=== PATIENT | female | born 1965 | race Caucasian/White ===

== ENCOUNTER 2016-12-16 11:26 | Emergency (ER) | payer MEDICARE, OTHER ==
[~2016-12-16] VITALS: Ht 157.5 cm; Wt 73.0 kg
[~2016-12-16 11:26] MED LIST: LITH300C2 PO; METHY5 PO; NORV10TA PO; SERO100T PO; TRAM50TA PO; ZOLO50TA PO
[2016-12-16 11:29] VITALS: BP 160/85; PULSE 83; RESP 17; TEMP 98.4; O2SAT 99
[2016-12-16] MEDS ORDERED: ZOLO50TA PO (11:44)
[2016-12-16] MEDS ORDERED: MULT1TAB84 PO (11:44)
[2016-12-16] MEDS ORDERED: AMLO10 PO (11:44)
[2016-12-16] MEDS ORDERED: ORPHENADRINE INJ 60 MG/2 ML AMP IM ONE (12:00)
[2016-12-16] MEDS ORDERED: KETOROLAC TROMETHAMINE 60 MG/2 ML (IM) VIAL IM ONE (12:00)
[2016-12-16] MEDS ORDERED: ACETAMINOPHEN/HYDROcodone 325 MG/5 MG TAB PO ONE (12:00)
--- NOTE | 2016-12-16 12:14 | PD ---
HPI Chief Complaint: Fall Time Seen by Provider: 12:10 Travel History International Travel<30 days: No Contact w/Intl Traveler<30days: No Traveled to known affect area: No History of Present Illness HPI 51-year-old female that presents to the ED for evaluation of trip and fall 3 days ago. Per patient she has a history of back surgery and chronic back problems. Per patient she chronically takes tramadol. Per patient she landed on her left buttocks and ever since she's been having pain. Per patient she tripped over some wooden stairs trying to take up the trash. She did not hit her head or lose consciousness. Several to ambulate but she states that putting any weight on the left leg causes a lot of pain. Pain is mostly on the left lower back and buttocks. She denies any prior injuries to the hip. She states that the pain is 8 out of 10. Per patient the pain medication she is taking is not really helping. Per patient her PCP is out of town so she decided to come here to get evaluated as she will not be able to get with him next couple of days. She denies any neck pain. She denies any fevers chills or sweats. No urinary or bowel movement issues. No weakness. No numbness, tilling. No neurological deficits whatsoever. Allergies to penicillin and codeine. PFSH Past Medical History ADHD: Yes Bipolar Disorder: Yes Anxiety: Yes Depression: Yes Cancer: No Cardiovascular Problems: Yes Diabetes: No Diminished Hearing: Yes Endocrine: No Genitourinary: No Hepatitis: Yes (C) Hypertension: Yes Immune Disorder: No Musculoskeletal: Yes Neurologic: No Psychiatric: Yes Reproductive: No Respiratory: Yes Immunizations Current: Yes Schizophrenia: Yes Thyroid Disease: No Tetanus Vaccination: < 5 Years Influenza Vaccination: Yes ?: Not Menopausal: Yes Past Surgical History Section: Yes (X2) Gynecologic Surgery: Yes (C SECTION X2) Tonsillectomy: Yes Other Surgery: Yes (BACK X2) Social History Alcohol Use: Yes (occ) Tobacco Use: Yes (1/2 PACK DAILY) Substance Use: No (denies) Allergies-Medications (Allergen,Severity, Reaction): Coded Allergies: Penicillin (Verified Allergy, Severe, Anaphylaxis, 12/16/16) Uncoded Allergies: asa with codeine (Allergy, Mild, n/v rash, 12/16/16) Reported Meds & Prescriptions Reported Meds & Active Scripts Active Diclofenac Sodium DR (Diclofenac Sodium) 75 Mg Tabdr 75 Mg PO BID PRN Robaxin (Methocarbamol) 750 Mg Tab 750 Mg PO QID PRN Lortab (Hydrocodone-Acetaminophen) 5-325 Mg Tab 1 Tab PO Q6H PRN Reported Multivitamin Adults (Multiple Vitamins W/ Minerals) 1 Tab 1 Tab PO DAILY Zoloft (Sertraline HCl) 50 Mg Tab 50 Mg PO DAILY Norvasc (Amlodipine Besylate) 10 Mg Tab 10 Mg PO BID Review of Systems Except as stated in HPI: all other systems reviewed are Neg Physical Exam Narrative GENERAL: SKIN: Warm and dry. HEAD: Atraumatic. Normocephalic. EYES: Pupils equal and round. No scleral icterus. No injection or drainage. ENT: No nasal bleeding or discharge. Mucous membranes pink and moist. Tongue is midline. No uvula deviation. NECK: Trachea midline. No JVD. CARDIOVASCULAR: Regular rate and rhythm. No murmurs, S3, S4. RESPIRATORY: No accessory muscle use. Clear to auscultation. Breath sounds equal bilaterally. GASTROINTESTINAL: Abdomen soft, non-tender, nondistended. Hepatic and splenic margins not palpable. MUSCULOSKELETAL: Extremities without clubbing, cyanosis, or edema. No obvious deformities. Full range of motion of the upper and lower extremities bilaterally. Patient has reproducible pain with flexion of the left hip on the lower lumbar back. No sign of spinal tenderness. Patient does have a surgical scar noted. Full range of motion of the lower legs. 2+ pulses bilaterally. Sensation intact bilaterally. Most of the pain is reproducible with touch as well as with movement of the left lower back around the buttocks. NEUROLOGICAL: Awake and alert. No obvious cranial nerve deficits. Motor grossly within normal limits. Five out of 5 muscle strength in the arms and legs. Normal speech. PSYCHIATRIC: Appropriate mood and affect; insight and judgment normal. Data Data Last Documented VS Vital Signs Date Time Temp Pulse Resp B/P Pulse Ox O2 Delivery O2 Flow Rate FiO2 12/16/16 11:29 98.4 83 17 160/85 99 Orders Hip, Uni(Ap&Lat) W Ap Pelvis (12/16/16 11:50) Acetamin-Hydrocod 325-5 Mg ([place] 5-325 (12/16/16 12:00) Ketorolac Inj (Toradol Inj) (12/16/16 12:00) Orphenadrine Inj (Norflex Inj) (12/16/16 12:00) Spine, Lumbar Comp W/Obliq (12/16/16 ) MDM Medical Decision Making Medical Screen Exam Complete: Yes Emergency Medical Condition: Yes Medical Record Reviewed: Yes Interpretation(s) xray of the lumbar spine showed no sign of acute disease xray of the hip showed no sign of acute disease Differential Diagnosis Fracture versus fall versus contusion versus acute on chronic pain versus sciatica Narrative Course 51-year-old female that presents to the ED for evaluation of left lower back pain. Patient was properly examined and was found to have signs and symptoms very consistent with her pain following possible bony injuries. Imaging recommended. Patient agrees with this. Patient was given IM and by mouth any medications with some relief. Imaging showed no sign of acute disease. Patient was reassured. At this time patient will be treated for this with Robaxin, Lortab, diclofenac sodium. Told to apply ice or warm compresses. Close follow with PCP. See ED worsening symptoms. Diagnosis Primary Impression: Contusion Qualified Code: S30.0XXA - Contusion of lower back, initial encounter Additional Impression: Lumbar radiculopathy, acute Patient Instructions: General Instructions, Narcotic given in the ED Additional Instructions: Take medications as prescribed. Follow-up with PCP. See ED for any worsening symptoms. Do not drink or drive while taking pain medication. Apply ice or heat as needed for pain Med/Other Pt SpecificInfo: Prescription(s) given Scripts Diclofenac Sodium DR 75 Mg Tabdr75 Mg PO BID PRN (PAIN SCALE 1 TO 10) #20 TAB Prov:Eric Jane MD 12/16/16 Methocarbamol (Robaxin)750 Mg Chm745 Mg PO QID PRN (PAIN SCALE 1 TO 10) #20 TAB Prov:Eric Jane MD 12/16/16 Hydrocodone-Acetaminophen (Lortab)5-325 Mg Tab1 Tab PO Q6H PRN (PAIN) #15 TAB Prov:Eric Jane MD 12/16/16 Disposition: 01 DISCHARGE HOME Condition: Stable Jean Paul Plascencia Dec 16, 2016 12:14
[2016-12-16] MEDS ORDERED: HYDR-3533 PO (12:40)
[2016-12-16] MEDS ORDERED: DICL75TA PO (12:40)
[2016-12-16] MEDS ORDERED: ROBA750T PO (12:40)
--- NOTE | 2016-12-16 13:07 | RADHPO ---
EXAM DATE/TIME: 12/16/2016 12:09 [facility] COMPARISON: No previous studies available for comparison. INDICATIONS : Left hip pain post fall three days ago. MEDICAL HISTORY : None. SURGICAL HISTORY : None. ENCOUNTER: Initial ACUITY: 3 days PAIN SCORE: 7/10 LOCATION: Left hip. FINDINGS: 3 views left hip and pelvis. Bone alignment within normal limits. No evidence of fracture. No eviden ce of joint narrowing. CONCLUSION: Left hip and pelvis radiographs within normal limits. Tarik Quevedo MD on December 16, 2016 at 13:05 Board Certified Radiologist. This report was verified electronically.
--- NOTE | 2016-12-16 13:59 | RADHPO ---
EXAM DATE/TIME: 12/16/2016 13:05 [facility] COMPARISON: No previous studies available for comparison. INDICATIONS : Lower back pain post fall three days ago. MEDICAL HISTORY : None. SURGICAL HISTORY : Lumbar surgery. ENCOUNTER: Initial ACUITY: 3 days PAIN SCORE: 6/10 LOCATION: lumbar spine. FINDINGS: 5 views of the lumbar spine. Bone alignment within normal limits. No evidence of fracture. Moderate size endplate osteophytes at L5-S1. Moderate severity facet arthrosis at L5-S1. Diffuse aortic calcif ication. CONCLUSION: No evidence of fracture. Moderate severity degenerative findings at L5-S1. Tarik Quevedo MD on December 16, 2016 at 13:56 Board Certified Radiologist. This report was verified electronically.
== END 2016-12-16 13:52 | disposition home or self-care (01) ==
LOC: PHEFT 11:26
DX: S30.0XXA Contusion of lower back and pelvis, initial encounter (principal); M54.16 Radiculopathy, lumbar region; F31.9 Bipolar disorder, unspecified; F41.8 Other specified anxiety disorders; I10 Essential (primary) hypertension; F20.9 Schizophrenia, unspecified; W18.09XA Striking against other object with subsequent fall, initial encounter; Y93.9 Activity, unspecified; Y92.89 Other specified places as the place of occurrence of the external cause; Y99.9 Unspecified external cause status
CPT/HCPCS: 72110; 73502; 96372; 99283; J1885; J2360

== ENCOUNTER 2017-03-15 14:05 | Emergency (ER) | payer MEDICARE, MEDICAID ==
[~2017-03-15 14:05] MED LIST changes: +AMLO10 PO; +DICL75TA PO; +HYDR-3533 PO; -LITH300C2 PO; -METHY5 PO; +MULT1TAB84 PO; -NORV10TA PO; +ROBA750T PO; -SERO100T PO; -TRAM50TA PO
[2017-03-15 14:13] VITALS: BP 172/77; PULSE 93; RESP 20; TEMP 98.7; O2SAT 97
[2017-03-15] MEDS ORDERED: ALBUAER3 INH (14:33)
[2017-03-15] MEDS ORDERED: SERT-129 PO (14:33)
[2017-03-15] MEDS ORDERED: SIMV40TA PO (14:33)
[2017-03-15] MEDS ORDERED: TRAM50TA PO (14:33)
[2017-03-15] MEDS ORDERED: SERO100T PO (14:33)
[2017-03-15] MEDS ORDERED: ALBU0.63 NEB (14:33)
[2017-03-15] MEDS ORDERED: DOXY100C PO (14:35)
--- NOTE | 2017-03-15 14:41 | PD ---
HPI Chief Complaint: Respiratory Symptoms Time Seen by Provider: 14:21 Travel History International Travel<30 days: No Contact w/Intl Traveler<30days: No Traveled to known affect area: No History of Present Illness HPI The patient was seen and examined in the presence of the nurse. This patient complains of irritating rash on her legs. Duration 3 days. Severity is moderate. She says that she gets this once a year and infection that goes away with antibiotics. She denies fever. No drainage. PFSH Past Medical History ADHD: Yes Bipolar Disorder: Yes Anxiety: Yes Depression: Yes Cancer: No Cardiovascular Problems: Yes COPD: Yes Diabetes: No Diminished Hearing: Yes Endocrine: No Genitourinary: No Hepatitis: Yes (C) Hypertension: Yes Immune Disorder: No Musculoskeletal: Yes Neurologic: No Psychiatric: Yes Reproductive: No Respiratory: Yes Immunizations Current: Yes Schizophrenia: Yes Thyroid Disease: No Tetanus Vaccination: > 5 Years Influenza Vaccination: Yes ?: Not Menopausal: Yes Past Surgical History Section: Yes (X2) Gynecologic Surgery: Yes (C SECTION X2) Tonsillectomy: Yes Other Surgery: Yes (BACK X2) Social History Alcohol Use: Yes (occ) Tobacco Use: Yes (1/2 PACK DAILY) Substance Use: No (denies) Allergies-Medications (Allergen,Severity, Reaction): Coded Allergies: Penicillin (Verified Allergy, Severe, Anaphylaxis, 03/15/17) Uncoded Allergies: asa with codeine (Allergy, Mild, n/v rash, 12/16/16) Reported Meds & Prescriptions Reported Meds & Active Scripts Active Doxycycline Hyclate 100 Mg Cap 100 Mg PO BID Reported Albuterol Neb (Albuterol Sulfate) 0.63 Mg/3 Ml Neb 0.63 Mg NEB Q4HR NEB PRN Proair Hfa 8.5 GM Inh (Albuterol Sulfate) 90 Mcg/Act Aer 1 Puff INH Q4H PRN 108 mcg/actuation Simvastatin 40 Mg Tab 40 Mg PO HS Tramadol (Tramadol HCl) 50 Mg Tab 100 Mg PO TID PRN Sertraline (Sertraline HCl) 100 Mg Tab 100 Mg PO DAILY Seroquel (Quetiapine Fumarate) 100 Mg Tab 100 Mg PO BID Norvasc (Amlodipine Besylate) 10 Mg Tab 10 Mg PO BID Review of Systems General / Constitutional: No: Fever HENT: No: Headaches Cardiovascular: No: Chest Pain or Discomfort Respiratory: No: Cough Physical Exam Narrative RESPIRATORY: Respiratory effort unlabored, no retractions or use of accessory muscles. Breath sounds are clear and symmetric. CARDIOVASCULAR: Regular rate and rhythm without murmur. Extremities showed no edema or varicosities. Legs: Mild symmetric edema SKIN: Focused skin assessment reveals there is macular erythematous rash on both julian areas. No ulcers. Skin is warm and dry. Palpation shows no induration or nodules. No drainage Data Data Last Documented VS Vital Signs Date Time Temp Pulse Resp B/P Pulse Ox O2 Delivery O2 Flow Rate FiO2 03/15/17 14:23 Room Air 03/15/17 14:13 98.7 93 20 172/77 97 MDM Medical Decision Making Medical Screen Exam Complete: Yes Emergency Medical Condition: Yes Medical Record Reviewed: Yes Differential Diagnosis Allergic reaction, dermatitis, cellulitis Narrative Course I have reviewed the patient's electronic medical record. Patient is insistent that this represents cellulitis of her legs. It is possible but by no means definitive. Her rash is very atypical. I wrote her one week of doxycycline. Recommend primary care follow-up. Diagnosis Primary Impression: Rash Additional Instructions: The patient was advised to follow up with their physician and return if they worsen. Elevate legs Wear knee-high compression stockings Med/Other Pt SpecificInfo: Prescription(s) given Scripts Doxycycline Hyclate 100 Mg [id number] Mg PO BID #14 CAP Ref 0 Prov:Reggie Guevara MD 03/15/17 Disposition: 01 DISCHARGE HOME Condition: Stable Reggie Guevara MD Mar 15, 2017 14:41
== END 2017-03-15 14:50 | disposition home or self-care (01) ==
LOC: PHED 14:05
DX: R21 Rash and other nonspecific skin eruption (principal); L53.9 Erythematous condition, unspecified; I10 Essential (primary) hypertension; H91.90 Unspecified hearing loss, unspecified ear; F17.200 Nicotine dependence, unspecified, uncomplicated; Z86.59 Personal history of other mental and behavioral disorders; Z86.79 Personal history of other diseases of the circulatory system; Z87.09 Personal history of other diseases of the respiratory system; Z87.19 Personal history of other diseases of the digestive system; Z87.39 Personal history of other diseases of the musculoskeletal system and connective tissue
CPT/HCPCS: 99283

== ENCOUNTER → 2017-09-10 | Outpatient (CLI) | payer MEDICARE, MEDICAID ==
[~2017-09-10] MED LIST changes: +ALBU0.63 NEB; +ALBUAER3 INH; -DICL75TA PO; +DOXY100C PO; -HYDR-3533 PO; -MULT1TAB84 PO; -ROBA750T PO; +SERO100T PO; +SERT-129 PO; +SIMV40TA PO; +TRAM50TA PO; -ZOLO50TA PO
--- NOTE | 2017-09-16 10:26 | RSPPFT ---
DATE OF PROCEDURE: 09/10/17 COMMENTS: Spirometry shows FVC of 2.7 at 94% of predicted, FEV1 of 1.5 at 65%, FEV1/FVC ratio is decreased. Flow is decreased at FEF 25, FEF 50, FEF 75 and FEF 25-75. There is no response after acutely inhaled bronchodilator treatment. Lung volumes show residual volume is increased. TLC is normal. Diffusion capacity is normal. Flow volume loop indicates an obstructive pattern. IMPRESSION: 1. Moderately severe obstructive lung disease. 2. No response after bronchodilator treatment. 3. Lung volumes show mild hyperinflation. 4. Diffusion capacity is normal.
== END ==
LOC: PHRSP 09:24
PROVIDERS: ATTEND Specialist
DX: J44.9 Chronic obstructive pulmonary disease, unspecified (principal)
CPT/HCPCS: 94060; 94726; 94729

== ENCOUNTER 2018-01-30 18:19 | Emergency (ER) | payer MEDICARE, MEDICAID ==
[~2018-01-30] VITALS: Ht 157.5 cm; Wt 76.6 kg
[2018-01-30 18:21] VITALS: BP 136/63; PULSE 89; RESP 16; TEMP 98.3; O2SAT 94
--- NOTE | 2018-01-30 18:52 | PD ---
HPI Chief Complaint: Wound/Suture/Staple Re-Check Time Seen by Provider: 18:36 Travel History International Travel<30 days: No Contact w/Intl Traveler<30days: No Traveled to known affect area: No History of Present Illness HPI 52-year-old female presents emergency department for evaluation of left wrist pain after a carpal tunnel surgery 5 hours ago. Says that her wrist began hurting almost immediately after placement of the bandages but she went home and the pain increased. She describes the pain as throbbing and her third fourth and fifth fingers are "numb". Says the pain is moderate to severe and nonradiating. She denies fevers or chills. Says that she try to call her hand specialist however, she was unsuccessful at talking to them. She has no other complaints today. PFSH Past Medical History Hx Anticoagulant Therapy: No ADHD: Yes Bipolar Disorder: Yes Anxiety: Yes Depression: Yes Cancer: No Cardiovascular Problems: Yes (HTN, CHOL) COPD: Yes Diabetes: No Diminished Hearing: Yes Endocrine: No Genitourinary: No Hepatitis: Yes (C) Hypertension: Yes Immune Disorder: No Musculoskeletal: Yes Neurologic: No Psychiatric: Yes Reproductive: No Respiratory: Yes Immunizations Current: Yes Schizophrenia: Yes Thyroid Disease: No ?: Not Menopausal: Yes Past Surgical History Section: Yes (X2) Gynecologic Surgery: Yes (C SECTION X2) Tonsillectomy: Yes Other Surgery: Yes (BACK X2) Social History Alcohol Use: Yes (occ) Tobacco Use: Yes (quit) Substance Use: No (denies) Allergies-Medications (Allergen,Severity, Reaction): Coded Allergies: penicillin G (Unverified Allergy, Severe, Anaphylaxis, 01/30/18) Uncoded Allergies: asa with codeine (Allergy, Mild, n/v rash, 12/16/16) Reported Meds & Prescriptions Reported Meds & Active Scripts Active Doxycycline Hyclate 100 Mg Cap 100 Mg PO BID Reported Albuterol Neb (Albuterol Sulfate) 0.63 Mg/3 Ml Neb 0.63 Mg NEB Q4HR NEB PRN Proair Hfa 8.5 GM Inh (Albuterol Sulfate) 90 Mcg/Act Aer 1 Puff INH Q4H PRN 108 mcg/actuation Simvastatin 40 Mg Tab 40 Mg PO HS Tramadol (Tramadol HCl) 50 Mg Tab 100 Mg PO TID PRN Sertraline (Sertraline HCl) 100 Mg Tab 100 Mg PO DAILY Seroquel (Quetiapine Fumarate) 100 Mg Tab 100 Mg PO BID Norvasc (Amlodipine Besylate) 10 Mg Tab 10 Mg PO BID Review of Systems Except as stated in HPI: all other systems reviewed are Neg Physical Exam Narrative GENERAL: Well-nourished, well-developed patient, in NAD SKIN: Focused skin assessment warm/dry. No rashes or lesions. HEAD: Normocephalic. Atraumatic. EYES: No scleral icterus. No injection or drainage. PERRLA, EOMI THROAT: No pharyngeal injection, exudates, or tonsillar hypertrophy. Airway is patent. NECK: Supple, trachea midline. No JVD or lymphadenopathy. No meningismus. CARDIOVASCULAR: Regular rate and rhythm without murmurs, gallops, or rubs. RESPIRATORY: Breath sounds equal bilaterally. No accessory muscle use. No wheezes, rales, or rhonchi MUSCULOSKELETAL: No cyanosis, or edema. Left upper extremity-bandage in place without drainage. The bandage appears clean and dry. After removal of the outer bandage, it appears that patient has a fiberglass splint along her thumb. The bandage was cut along the ulnar aspect from the fifth metacarpal down to the wrist and up from the forearm to the proximal wrist The fingers, hand and forearm appears supple without significant tenderness to palpation. BACK: Nontender without obvious deformity. No CVA tenderness. Data Data Last Documented VS Vital Signs Date Time Temp Pulse Resp B/P (MAP) Pulse Ox O2 Delivery O2 Flow Rate FiO2 01/30/18 18:21 98.3 89 16 136/63 (87) 94 MDM Medical Decision Making Medical Screen Exam Complete: Yes Emergency Medical Condition: Yes Differential Diagnosis Carpal tunnel syndrome, wound check, postprocedural pain Narrative Course 52-year-old female presents emergency department complaining of left arm pain after carpal tunnel surgery that occurred 5 hours ago. Patient says that she tried to call the office but was unsuccessful at discussing with them. She came in today because the pain is throbbing and relentless. A Portion of the bandages were cut to relieve pressure although I do not see evidence of compartment syndrome today.. Patient says she has significant improvement. The area was re-bandaged with an Shabbir wrap to reduce complications. Advised her to leave in place until evaluated by her hand specialist. I told her the importance of keeping the area clean and dry to reduce complications of her wound from the surgery. Tylenol 3 administered in the emergency department for pain. She is strongly advised to follow-up with her hand specialist tomorrow. Advised to follow-up with her primary care physician. Advised to follow instructions as given by her hand specialist per Diagnosis Primary Impression: Visit for wound check Additional Impression: Other acute postprocedural pain Referrals: Hand Surgeon Additional Instructions: Follow-up with a hand specialist tomorrow. Keep the bandages in place to avoid infection and complications as a result of her surgery. Disposition: 01 DISCHARGE HOME Condition: Stable Lo Vidal Jan 30, 2018 18:52
[2018-01-30] MEDS ORDERED: ACETAMINOPHEN/CODEINE 300 MG/30 MG TAB PO ONE (19:00)
[2018-01-30 19:34] VITALS: BP 136/70
== END 2018-01-30 19:35 | disposition home or self-care (01) ==
LOC: PHEFT 18:19
DX: G89.18 Other acute postprocedural pain (principal); M25.532 Pain in left wrist; R20.0 Anesthesia of skin; G56.02 Carpal tunnel syndrome, left upper limb; I10 Essential (primary) hypertension; J44.9 Chronic obstructive pulmonary disease, unspecified; Z88.0 Allergy status to penicillin; Z88.5 Allergy status to narcotic agent; Z79.899 Other long term (current) drug therapy
CPT/HCPCS: 99281; 99283